=== PATIENT | female | born 1995 | race Caucasian/White ===

== ENCOUNTER 2019-05-01 14:38 | Emergency (ER) | payer MEDICAID, SELFPAY ==
[2019-01-10 09:38] VITALS: BMI 43.9
[2019-05-01 14:39] VITALS: BP 118/76; PULSE 84; RESP 16; TEMP 36.8; O2SAT 96; BMI 39.6
--- NOTE | 2019-05-01 15:06 | ED.DCSUM_ITS ---
- ER Visit Summary Date of Service: 05/01/19 Chief Complaint: Left lower back pain History of Present Illness: The patient is a 23 F who complains of left lower back pain. Started at 230 this morning. She has sharp pain in the left lumbar region. It radiates up her back. Worse with movement. Nothing makes it better. She tried naproxen at home without any relief. She is a history of a bulging disc at other back problems for which she takes naproxen fairly frequently. She states that her dog pushed on her back last night and made her pain worse Physical Examination: Vital signs reviewed. HEENT exam unremarkable. Heart is regular rate and rhythm without murmurs. Lungs are clear to auscultation. Abdomen is soft and nontender. Back is tender in the left lumbar paraspinal region. There is no step-offs or midline tenderness. Extremities reveal no edema. Skin exam normal. Neurologic exam normal. Test Results: None performed Emergency Department Course and Treatment: Patient will be treated with Norflex and Toradol here. I will give her Flexeril for home. She will continue her naproxen. She will call her primary care physician for follow-up Treatment Plan: [] Disposition: Discharge Impression: Acute on chronic back pain This note was generated with [employer] dictation software. It may contain incorrect words, spelling, and punctuation that were not noted in review of the chart prior to signing ED Disposition - Plan for ED Patient: Referrals: Care Physician,No Primary [Primary Care Provider] -
--- NOTE | 2019-05-01 15:07 | ED.DEP ---
ED Disposition - Plan for ED Patient: Disposition: Home or Assisted Living Instructions: BACK AND NECK PAIN, General Prescriptions: cycloBENZAPRine HCl [Flexeril] 10 mg PO TID PRN #20 tab PRN Reason: Muscle Spasm Prescription Printed Referrals: Care Physician,No Primary [Primary Care Provider] -
[2019-05-01] MEDS: Ketorolac 60 MG/2 ML Vial IM (15:12)
[2019-05-01] MEDS: Orphenadrine 60 MG/2 ML Ampul IM (15:12)
[2019-05-01 15:24] VITALS: BP 131/68; PULSE 59; RESP 16; O2SAT 99
== END 2019-05-01 15:31 | disposition home or self-care (01) ==
LOC: ED 15:30
PROVIDERS: Emergency Provider Emergency Medicine
DX: G89.29 Other chronic pain (principal); M54.9 Dorsalgia, unspecified; Z72.0 Tobacco use
CPT/HCPCS: 96372; 99282